=== PATIENT | female | born 1995 | race Caucasian/White ===

== ENCOUNTER 2017-01-03 15:14 | Emergency (ER) | payer OTHER ==
[~2017-01-03] VITALS: Ht 162.6 cm; Wt 88.4 kg
[~2017-01-03 15:14] MED LIST: 12 HOUR DECONG120 M1 PO; ATARAX,VISTARIL25 MG PO; AZITHROMYCIN250 MG1 PO; BENADRYL50 MG PO; CIPRO500 MG PO; CLARITIN,ALAVAR10 MG PO; ENDOCET 5-3251 EACH PO; FIORICET 50-301 EACH PO; IBUPROFEN800 MG PO; KEFLEX500 MG PO; MOTRIN600 MG PO; Motrin PO; NOHOMEMEDS; PREDNISONE20 MG PO; PRENATAL TABLE1 EAC3 PO; PRENATAL VITAM1 EAC3 PO; PSEUDOEPHEDRINE30 MG PO; Percocet 5/325,Endoc PO; RITALIN; TEGRETOL
[2017-01-03 15:56] LABS: ADD MIUA? YES; BILIRUBIN NEGATIVE; BLOOD SMALL; COLOR YELLOW ((YELLOW)); GLUCOSE (STRIP) NEGATIVE; KETONES NEGATIVE; LEUKOCYTES NEGATIVE; NITRITE NEGATIVE; PROTEIN (STRIP) NEGATIVE; SPECIFIC GRAVITY 1.015 (1.000-1.030); UROBILINOGEN 0.2 MG/DL (0.2-1.0)
[2017-01-03 16:02] LABS: BACTERIA RARE /HPF; EPITHELIAL CELLS 1+ /HPF; MUCUS TRACE /LPF; RED BLOOD CELLS 0-5 /HPF (0-5); UCUL ADDED? NO; WHITE BLOOD CELLS 0-5 /HPF (0-5)
[2017-01-03 16:09] LABS: MCH 27.5 PG (29.0-34.0); MCHC 33.5 G/DL (30.0-36.0); MCV 82.1 FL (83-99); MEAN PLAT.VOLUME 8.8 uM^3 (9.5-12.4); PLATELET COUNT 406 K/uL (156-360); RBC DIS.WIDTH-CV 12.8 % (11.8-14.6); RBC DIS.WIDTH-SD 37.8 % (39-53); RED BLOOD COUNT 4.87 M/uL (3.80-5.20); WHITE BLOOD COUNT 9.5 K/uL (4.1-10.2)
[2017-01-03 16:17] LABS: CHLORIDE 107 mEq/L (99-109); POTASSIUM 4.2 mEq/L (3.7-5.4); SODIUM 138 mEq/L (136-147)
[2017-01-03 16:20] LABS: GLUCOSE 90 mg/dL (70-99)
[2017-01-03 16:21] LABS: ANION GAP 5 MEQ/L (2-14)
[2017-01-03 16:22] LABS: TOTAL BILIRUBIN 0.3 mg/dL (0.0-1.0)
[2017-01-03 16:23] LABS: ALKALINE PHOSPHATASE 91 IU/L (3-129); GFR ESTIMATE (CALCULATED) > 59 mL/min/
[2017-01-03 16:24] LABS: UREA NITROGEN (BUN) 11 mg/dL (9-23)
[2017-01-03 16:38] LABS: QUANTITATIVE HCG < 4.0 MIU/ML
[2017-01-03] MEDS ORDERED: CITRATE OF MAG296 ML PO (17:07)
[2017-01-03 17:45] VITALS: BP 115/79
== END 2017-01-03 17:46 | disposition home or self-care (01) ==
LOC: EME 15:14
DX: K59.00 Constipation, unspecified (principal); R10.30 Lower abdominal pain, unspecified; Z91.040 Latex allergy status; Z88.0 Allergy status to penicillin
CPT/HCPCS: 74000; 80053; 81003; 84702; 85027; 99281; 99284

== ENCOUNTER 2017-02-12 21:51 | Emergency (ER) | payer OTHER ==
[~2017-02-12] VITALS: Ht 162.6 cm; Wt 89.3 kg
[~2017-02-12 21:51] MED LIST changes: +CITRATE OF MAG296 ML PO
[2017-02-12 22:55] LABS: INFLUENZA A VIRAL ANTIGEN NEGATIVE; INFLUENZA B VIRAL ANTIGEN NEGATIVE
[2017-02-12 23:06] LABS: HEMATOCRIT 40.5 % (36.0-46.0); MCH 27.3 PG (29.0-34.0); MCHC 32.6 G/DL (30.0-36.0); MCV 83.9 FL (83-99); PLATELET COUNT 394 K/uL (156-360); RBC DIS.WIDTH-CV 12.4 % (11.8-14.6); RBC DIS.WIDTH-SD 37.5 % (39-53); RED BLOOD COUNT 4.83 M/uL (3.80-5.20)
[2017-02-12 23:19] LABS: ADD MIUA? YES; BILIRUBIN NEGATIVE; BLOOD SMALL; COLOR YELLOW ((YELLOW)); GLUCOSE (STRIP) NEGATIVE; KETONES NEGATIVE; LEUKOCYTES NEGATIVE; NITRITE NEGATIVE; PROTEIN (STRIP) NEGATIVE; SPECIFIC GRAVITY 1.014 (1.000-1.030); UROBILINOGEN 0.2 MG/DL (0.2-1.0)
[2017-02-12 23:22] LABS: CHLORIDE 104 mEq/L (99-109); POTASSIUM 3.3 mEq/L (3.7-5.4); SODIUM 138 mEq/L (136-147)
[2017-02-12 23:24] LABS: GLUCOSE 92 mg/dL (70-99)
[2017-02-12 23:25] LABS: ANION GAP 11 MEQ/L (2-14)
[2017-02-12 23:26] LABS: TOTAL BILIRUBIN 0.5 mg/dL (0.0-1.0)
[2017-02-12 23:27] LABS: ALKALINE PHOSPHATASE 87 IU/L (3-129)
[2017-02-12 23:28] LABS: GFR ESTIMATE (CALCULATED) > 59 mL/min/
[2017-02-12 23:29] LABS: UREA NITROGEN (BUN) 8 mg/dL (9-23)
[2017-02-12 23:38] LABS: QUANTITATIVE HCG < 4.0 MIU/ML
[2017-02-12 23:40] LABS: BACTERIA RARE /HPF; EPITHELIAL CELLS RARE /HPF; MUCUS 1+ /LPF; RED BLOOD CELLS 0-5 /HPF (0-5); WHITE BLOOD CELLS 0-5 /HPF (0-5)
[2017-02-12 23:42] LABS: INTERNAL CONTROL VALID? YES; MONOSPOT (MONONUCLEOSIS SEROL) NEGATIVE
[2017-02-13] MEDS ORDERED: ZOFRAN ODT4 MG PO (00:02)
[2017-02-13 00:30] VITALS: BP 108/77
== END 2017-02-13 00:33 | disposition home or self-care (01) ==
LOC: EME 21:51
PROVIDERS: Physician Assistant Medical
DX: R11.2 Nausea with vomiting, unspecified (principal); R53.83 Other fatigue; Z87.891 Personal history of nicotine dependence
CPT/HCPCS: 80053; 81003; 84702; 85027; 86308; 87502; 99281; 99285

== ENCOUNTER 2017-03-31 20:39 | Emergency (ER) | payer OTHER ==
[~2017-03-31] VITALS: Ht 162.6 cm; Wt 90.4 kg
[~2017-03-31 20:39] MED LIST changes: +ZOFRAN ODT4 MG PO
[2017-03-31 21:12] LABS: HEMATOCRIT 39.7 % (36.0-46.0); MCH 27.1 PG (29.0-34.0); MCHC 32.2 G/DL (30.0-36.0); MCV 84.1 FL (83-99); MEAN PLAT.VOLUME 8.8 uM^3 (9.5-12.4); PLATELET COUNT 402 K/uL (156-360); RBC DIS.WIDTH-CV 12.8 % (11.8-14.6); RBC DIS.WIDTH-SD 39.1 % (39-53); RED BLOOD COUNT 4.72 M/uL (3.80-5.20); WHITE BLOOD COUNT 8.7 K/uL (4.1-10.2)
[2017-03-31 21:19] LABS: CHLORIDE 108 mEq/L (99-109); POTASSIUM 3.7 mEq/L (3.7-5.4); SODIUM 140 mEq/L (136-147)
[2017-03-31 21:22] LABS: GLUCOSE 94 mg/dL (70-99)
[2017-03-31 21:23] LABS: ANION GAP 10 MEQ/L (2-14)
[2017-03-31 21:24] LABS: TOTAL BILIRUBIN 0.5 mg/dL (0.0-1.0)
[2017-03-31 21:25] LABS: ALKALINE PHOSPHATASE 73 IU/L (3-129); GFR ESTIMATE (CALCULATED) > 59 mL/min/
[2017-03-31 21:26] LABS: UREA NITROGEN (BUN) 7 mg/dL (9-23)
[2017-03-31 21:34] LABS: QUANTITATIVE HCG 1963.6 MIU/ML
[2017-03-31 22:54] LABS: ADD MIUA? YES; BILIRUBIN NEGATIVE; BLOOD SMALL; COLOR YELLOW ((YELLOW)); GLUCOSE (STRIP) NEGATIVE; KETONES NEGATIVE; LEUKOCYTES NEGATIVE; NITRITE NEGATIVE; PROTEIN (STRIP) 30; SPECIFIC GRAVITY 1.023 (1.000-1.030)
[2017-03-31 23:04] LABS: BACTERIA NONE SEEN /HPF; EPITHELIAL CELLS 1+ /HPF; MUCUS 4+ /LPF; RED BLOOD CELLS 0-5 /HPF (0-5); UCUL ADDED? NO; WHITE BLOOD CELLS 0-5 /HPF (0-5)
[2017-04-01 02:23] VITALS: BP 125/78
== END 2017-04-01 02:24 | disposition home or self-care (01) ==
LOC: EME 20:39
DX: O26.891 Other specified pregnancy related conditions, first trimester (principal); R10.33 Periumbilical pain; Z3A.01 Less than 8 weeks gestation of pregnancy; Z87.891 Personal history of nicotine dependence
CPT/HCPCS: 76801; 80053; 81003; 84702; 85027; 99281; 99284

== ENCOUNTER 2017-04-12 04:02 | Emergency (ER) | payer OTHER ==
[~2017-04-12] VITALS: Ht 162.6 cm; Wt 90.4 kg
[2017-04-12 05:21] LABS: CHLORIDE 104 mEq/L (99-109); POTASSIUM 3.6 mEq/L (3.7-5.4); SODIUM 137 mEq/L (136-147)
[2017-04-12 05:23] LABS: GLUCOSE 92 mg/dL (70-99)
[2017-04-12 05:24] LABS: ANION GAP 11 MEQ/L (2-14)
[2017-04-12 05:27] LABS: GFR ESTIMATE (CALCULATED) > 59 mL/min/; MCH 27.6 PG (29.0-34.0); MCV 83.5 FL (83-99); MEAN PLAT.VOLUME 8.9 uM^3 (9.5-12.4); PLATELET COUNT 371 K/uL (156-360); RBC DIS.WIDTH-CV 12.7 % (11.8-14.6); RBC DIS.WIDTH-SD 38.6 % (39-53); RED BLOOD COUNT 4.79 M/uL (3.80-5.20); UREA NITROGEN (BUN) 9 mg/dL (9-23)
[2017-04-12 05:28] LABS: WHITE BLOOD COUNT 16.5 K/uL (4.1-10.2)
[2017-04-12 05:57] LABS: QUANTITATIVE HCG 53050.9 MIU/ML
[2017-04-12 06:44] VITALS: BP 106/76
== END 2017-04-12 06:55 | disposition home or self-care (01) ==
LOC: EME 04:02
PROVIDERS: Emergency Medicine
DX: O26.891 Other specified pregnancy related conditions, first trimester (principal); S00.411A Abrasion of right ear, initial encounter; S40.211A Abrasion of right shoulder, initial encounter; S20.319A Abrasion of unspecified front wall of thorax, initial encounter; S00.83XA Contusion of other part of head, initial encounter; Y04.8XXA Assault by other bodily force, initial encounter; Y07.03 Male partner, perpetrator of maltreatment and neglect; Z3A.01 Less than 8 weeks gestation of pregnancy; Z87.891 Personal history of nicotine dependence
CPT/HCPCS: 76801; 80048; 84702; 85027; 86900; 86901; 99281; 99283

== ENCOUNTER 2017-10-04 16:33 | Outpatient (CLI) | payer OTHER ==
[2017-10-04 16:48] VITALS: BP 117/76
== END 2017-10-04 18:05 | disposition home or self-care (01) ==
LOC: LDRP-OP → 2WEST 16:35 → LDRP-OP 01-06 13:23
DX: O36.8130 Decreased fetal movements, third trimester, not applicable or unspecified (principal); O34.219 Maternal care for unspecified type scar from previous cesarean delivery; Z3A.31 31 weeks gestation of pregnancy
CPT/HCPCS: 59025; G0378

== ENCOUNTER 2017-10-07 14:17 | Emergency (ER) | payer OTHER ==
[~2017-10-07] VITALS: Ht 162.6 cm; Wt 95.0 kg
[2017-10-07 15:13] LABS: HEMATOCRIT 33.9 % (36.0-46.0); MCHC 33.3 G/DL (30.0-36.0); MCV 83.9 FL (83-99); MEAN PLAT.VOLUME 8.6 uM^3 (9.5-12.4); PLATELET COUNT 266 K/uL (156-360); RBC DIS.WIDTH-CV 12.6 % (11.8-14.6); RBC DIS.WIDTH-SD 38.5 % (39-53); RED BLOOD COUNT 4.04 M/uL (3.80-5.20); WHITE BLOOD COUNT 11.2 K/uL (4.1-10.2)
[2017-10-07 15:22] LABS: CHLORIDE 107 mEq/L (99-109); POTASSIUM 3.6 mEq/L (3.7-5.4); SODIUM 136 mEq/L (136-147)
[2017-10-07 15:23] LABS: GLUCOSE 95 mg/dL (70-99)
[2017-10-07 15:25] LABS: ANION GAP 10 MEQ/L (2-14)
[2017-10-07 15:27] LABS: GFR ESTIMATE (CALCULATED) > 59 mL/min/
[2017-10-07 15:28] LABS: UREA NITROGEN (BUN) 3 mg/dL (9-23)
[2017-10-07 15:34] LABS: TROP-I INTERPRETATION NEGATIVE; TROPONIN-I < 0.01 ng/mL (0.0-0.30)
[2017-10-07 18:20] LABS: TROP-I INTERPRETATION NEGATIVE; TROPONIN-I < 0.01 ng/mL (0.0-0.30)
[2017-10-07 18:30] VITALS: BP 111/70
== END 2017-10-07 18:30 | disposition home or self-care (01) ==
LOC: EME 14:17
PROVIDERS: Physician Assistant Medical
DX: O99.89 Other specified diseases and conditions complicating pregnancy, childbirth and the puerperium (principal); M94.0 Chondrocostal junction syndrome [Tietze]; R91.8 Other nonspecific abnormal finding of lung field; Z3A.32 32 weeks gestation of pregnancy; Z87.891 Personal history of nicotine dependence
CPT/HCPCS: 71020; 71275; 80048; 84484; 85027; 85379; 93005; 99281; 99284

== ENCOUNTER 2017-11-29 09:20 | Inpatient (IN) | payer OTHER ==
[~2017-11-29] VITALS: Ht 162.6 cm; Wt 94.8 kg
[2017-11-29] VITALS (7 sets, daily range): BP systolic 101–134; BP diastolic 62–72
[2017-11-29 11:07] LABS: BASOPHIL (%) 0.3 % (0-1); EOSINOPHIL (%) 0.2 % (0-5); HEMATOCRIT 35.7 % (36.0-46.0); HEMOGLOBIN 11.8 G/DL (11.9-15.5); IMMATURE GRANULOCYTE (%) 0.5 % (0.0-0.7); LYMPHOCYTE (%) 13.1 % (15-42); LYMPHOCYTE COUNT 1.7 K/uL (1.0-2.8); MCH 27.4 PG (29.0-34.0); MCHC 33.1 G/DL (30.0-36.0); MONOCYTE (%) 7.4 % (3-12); NEUTROPHIL (%) 78.5 % (45-76); NEUTROPHIL COUNT 10.1 K/uL (1.8-6.4); PLATELET COUNT 262 K/uL (156-360); RBC DIS.WIDTH-CV 13.8 % (11.8-14.6); RBC DIS.WIDTH-SD 41.5 % (39-53); WHITE BLOOD COUNT 12.8 K/uL (4.1-10.2)
[2017-11-30] VITALS (7 sets, daily range): BP systolic 103–118; BP diastolic 55–74
[2017-11-30 07:45] LABS: BASOPHIL (%) 0.2 % (0-1); EOSINOPHIL (%) 0.2 % (0-5); HEMATOCRIT 34.3 % (36.0-46.0); IMMATURE GRANULOCYTE (%) 0.6 % (0.0-0.7); LYMPHOCYTE (%) 12.3 % (15-42); LYMPHOCYTE COUNT 1.8 K/uL (1.0-2.8); MCH 27.1 PG (29.0-34.0); MCHC 32.1 G/DL (30.0-36.0); MCV 84.5 FL (83-99); MONOCYTE (%) 9.4 % (3-12); MONOCYTE COUNT 1.4 K/uL (0-0.8); NEUTROPHIL (%) 77.3 % (45-76); NEUTROPHIL COUNT 11.2 K/uL (1.8-6.4); PLATELET COUNT 282 K/uL (156-360); RBC DIS.WIDTH-SD 43.8 % (39-53); RED BLOOD COUNT 4.06 M/uL (3.80-5.20); WHITE BLOOD COUNT 14.5 K/uL (4.1-10.2)
[2017-12-01 02:25] VITALS: BP 110/67
[2017-12-01 07:26] VITALS: BP 117/69
[2017-12-01 11:16] VITALS: BP 133/71
[2017-12-01] MEDS ORDERED: IBUPROFEN800 MG PO (14:29)
[2017-12-01] MEDS ORDERED: ENDOCET 5-3251 EACH PO (14:29)
== END 2017-12-01 16:10 | disposition home or self-care (01) | DRG 766 ==
LOC: 2WEST 09:20 → 2SOUTH 10:28 → 2WEST 12-01 16:10
PROVIDERS: Obstetrics & Gynecology Obstetrics
PROC: 10D00Z1 Extraction of Products of Conception, Low, Open Approach (ICD-10-PCS; principal; 2017-11-29)
DX: O34.211 Maternal care for low transverse scar from previous cesarean delivery (principal); O99.214 Obesity complicating childbirth; E66.9 Obesity, unspecified; Z68.30 Body mass index [BMI] 30.0-30.9, adult; Z3A.39 39 weeks gestation of pregnancy; Z37.0 Single live birth; Z91.19 Patient's noncompliance with other medical treatment and regimen; Z80.3 Family history of malignant neoplasm of breast; Z88.0 Allergy status to penicillin
CPT/HCPCS: 85025; 86850; 86900; 86901; J1050; J1200; J1580; J1885; J2274; J2405; J7050; J7120

== ENCOUNTER 2018-03-06 15:09 | Emergency (ER) | payer SELFPAY ==
[~2018-03-06] VITALS: Ht 162.6 cm; Wt 97.4 kg
[2018-03-06 16:26] VITALS: BP 120/84
== END 2018-03-06 16:26 | disposition home or self-care (01) ==
LOC: EME 15:09
DX: S92.511A Displaced fracture of proximal phalanx of right lesser toe(s), initial encounter for closed fracture (principal); Z88.0 Allergy status to penicillin; Z91.040 Latex allergy status
CPT/HCPCS: 73660; 99281; 99284

== ENCOUNTER 2018-04-24 22:34 | Emergency (ER) | payer SELFPAY ==
[~2018-04-24] VITALS: Ht 162.6 cm; Wt 99.8 kg
[2018-04-24 22:42] VITALS: BP 125/91
[2018-04-24] MEDS ORDERED: KEFLEX500 MG PO (23:55)
== END 2018-04-25 00:21 | disposition home or self-care (01) ==
LOC: EME 22:34
DX: L03.011 Cellulitis of right finger (principal); Z88.0 Allergy status to penicillin; Z91.040 Latex allergy status
CPT/HCPCS: 99281; 99283